=== PATIENT | female | born 1965 | race Caucasian/White ===

== ENCOUNTER 2022-01-13 11:53 | Emergency (ER) | payer SELFPAY ==
[~2022-01-13] VITALS: Ht 165.1 cm; Wt 73.0 kg
[2022-01-13] MEDS ORDERED: ACETAMINOPHEN WITH CODEINE 300/30MG TABLET PO ONE (12:30)
[2022-01-13 13:14] VITALS: BP 167/91
[2022-01-13] MEDS ORDERED: NAPR-1176 MT (13:30)
[2022-01-13] MEDS ORDERED: CYCL10TA21 MT (13:30)
== END 2022-01-13 13:52 | disposition home or self-care (01) ==
LOC: ER 11:53
DX: S09.8XXA Other specified injuries of head, initial encounter (principal); S16.1XXA Strain of muscle, fascia and tendon at neck level, initial encounter; S39.012A Strain of muscle, fascia and tendon of lower back, initial encounter; S40.012A Contusion of left shoulder, initial encounter; S70.02XA Contusion of left hip, initial encounter; I10 Essential (primary) hypertension; E11.9 Type 2 diabetes mellitus without complications; V43.52XA Car driver injured in collision with other type car in traffic accident, initial encounter; Y93.89 Activity, other specified; Y92.488 Other paved roadways as the place of occurrence of the external cause
CPT/HCPCS: 71045; 73030; 73502; 99284